=== PATIENT | male | born 1960 | race Caucasian/White ===

== ENCOUNTER 2017-11-09 09:58 | Emergency (ER) | payer MEDICAID ==
[2017-11-09] MEDS: IBUPROFEN 600 MG TAB PO (10:44)
[2017-11-09] MEDS: HYDROCODONE/APAP (5/325) TAB PO (13:38)
== END 2017-11-09 14:36 | disposition home or self-care (01) ==
LOC: FTE 09:58
DX: S92.002A Unspecified fracture of left calcaneus, initial encounter for closed fracture (principal); S93.401A Sprain of unspecified ligament of right ankle, initial encounter; W11.XXXA Fall on and from ladder, initial encounter; Y92.9 Unspecified place or not applicable
CPT/HCPCS: 73600; 73600-50; 99284-25